=== PATIENT | female | born 1975 | race Caucasian/White ===

== ENCOUNTER 2023-04-05 09:08 | Day surgery (SDC) | payer BC ==
[2023-04-04 12:53] VITALS: BMI 23.1
[2023-04-05 09:22] VITALS: RESP 16
[2023-04-05 10:58] VITALS: TEMP 97.8
[2023-04-05 11:11] VITALS: BP 101/68; PULSE 68
== END 2023-04-05 11:20 | disposition home or self-care (01) ==
LOC: FASU-ENDO 09:08
PROVIDERS: ATTEND Internal Medicine Gastroenterology
PROC: 0DJD8ZZ Inspection of Lower Intestinal Tract, Via Natural or Artificial Opening Endoscopic (ICD-10-PCS; principal; 2023-04-05 10:22)
DX: Z12.11 Encounter for screening for malignant neoplasm of colon (principal); K64.1 Second degree hemorrhoids
CPT/HCPCS: 84703